=== PATIENT | male | born 1995 | race Caucasian/White ===

== ENCOUNTER 2016-09-06 17:32 | Emergency (ER) | payer OTHER ==
[2016-09-06 19:35] LABS: BILIRUBIN NEGATIVE (NEGATIVE); BLOOD NEGATIVE Ery/uL (NEGATIVE); CLARITY CLEAR (CLEAR); COLOR YELLOW (YELLOW); GLUCOSE (U) NORMAL (NORMAL); KETONE (U) NEGATIVE (NEGATIVE); LEUKOCYTES NEGATIVE Leu/uL (NEGATIVE); NITRITE NEGATIVE (NEGATIVE); PROTEIN NEGATIVE (NEGATIVE); SPECIFIC GRAVITY 1.015 (1.001-1.030); UROBILINOGEN 0.2 mg/dL (0.2-1.0)
[2016-09-06 19:35] LABS: BASOPHIL 0.7 % (0-2); EOSINOPHIL 2.5 % (0-5); HGB 14.3 g/dl (13.2-18.0); LYMPHOCYTE 44.9 % (15-48); MCH 31.8 pg (25.0-31.0); MCHC 34.9 g/dL (32.0-36.0); MCV 91.1 fL (78.0-100.0); MONOCYTE 10.1 % (0-12); NEUTROPHIL 41.8 % (41-80); PLT 286 K/uL (150-400); RDW 12.5 % (11.5-14.0); WBC 7.1 K/uL (4.0-10.5)
[2016-09-06 19:46] LABS: ALBUMIN 4.9 g/dL (3.5-5.0); BILIRUBIN - TOTAL 0.3 mg/dL (0.1-1.0); CREATININE 0.9 mg/dL (0.7-1.2); GLOBULIN (CALCULATION) 2.4 g/dL (2.2-4.2); TOTAL PROTEIN 7.3 g/dL (6.4-8.3)
== END 2016-09-06 21:29 | disposition home or self-care (01) ==
LOC: FER 17:32
PROVIDERS: Emergency Medicine Emergency Medical Services
DX: R55 Syncope and collapse (principal); R51 Headache
CPT/HCPCS: 36415; 70450; 71020; 80053; 81003; 85025; 86140; 93005